=== PATIENT | male | born 1970 | race Caucasian/White ===

== ENCOUNTER 2022-05-22 13:50 | Emergency (ER) | payer MEDICAID ==
[~2022-05-22] VITALS: Ht 167.6 cm; Wt 88.9 kg
--- NOTE | 2022-05-22 14:25 | NUR ---
RECEIVED PT 52 YRS MALE CAME FROM HOME C/O SWALLEN AND REDNESS LT UNDER ARM BIT FOR 10 DAYS CLOSES NO DRANING
--- NOTE | 2022-05-22 14:35 | NUR ---
SEEN BY DR. LUNA
[2022-05-22] MEDS ORDERED: CLIN300C12 PO (14:59)
[2022-05-22] MEDS ORDERED: CLINDAMYCIN HCL 150 MG CAPSULE PO ONE (15:00)
[2022-05-22] MEDS ORDERED: IBUPROFEN 400 MG TABLET PO ONE (15:00)
[2022-05-22] MEDS ORDERED: CLINDAMYCIN HCL 150 MG CAPSULE ONE (15:10)
[2022-05-22] MEDS ORDERED: IBUPROFEN 400 MG TABLET ONE (15:10)
--- NOTE | 2022-05-22 15:20 | NUR ---
Note lizbet in ED - 05/22/22 at 1534 by JENNIFER IV removed. Catheter intact and site benign. Pressure and 4x4 applied to site. No bleeding noted.
--- NOTE | 2022-05-22 15:20 | NUR ---
MOTRIN AND CINDAMYCIN GIVEN TO PT TO ADVANCE REACTION
--- NOTE | 2022-05-22 15:26 | NUR ---
Patient discharged to home in stable condition. Written and verbal after care instructions given. Patient verbalizes understanding of instruction.
[2022-05-22 15:38] VITALS: BP 142/86
== END 2022-05-22 15:50 | disposition home or self-care (01) ==
LOC: ER 14:00
DX: L03.112 Cellulitis of left axilla (principal); I10 Essential (primary) hypertension; E11.9 Type 2 diabetes mellitus without complications